=== PATIENT | male | born 1965 | race Caucasian/White ===

== ENCOUNTER 2017-07-21 13:10 | Observation (INO) | payer BC, OTHER ==
--- NOTE | 2017-07-21 13:49 | EDPHY ---
H & P Time Seen by Provider: 07/21/17 13:29 HPI/ROS: Chief complaint. Abdominal pain HPI. 52-year-old male with abdominal pain for 2 days. Apparently 2 nights ago he had fever and chills and symptoms were quite severe. He took some ibuprofen some gas medication and felt much better. His discomfort is in the lower right abdomen. Yesterday he had minimal symptoms though some discomfort if he pushed on it. No nausea vomiting or diarrhea. He has been slightly constipated. Took a laxative and did have kind of a loose stool this morning. No urinary symptoms. He went for a bike ride this morning. He went to [facility] who did a CT of his abdomen and diagnosed appendicitis. No blood work is done. No previous abdominal surgery. Last meal was 7:00 a.m.. ROS Constitutional. Fever and chills 2 nights ago Eyes. no problems with vision ENT. no sore throat, no nasal drainage Cardiovascular. no chest pain Respiratory. no shortness of breath, no cough Abdominal. Right lower quadrant abdominal pain . no problems urinating MS. no calf pain/swelling, no neck/back pain, no joint pain Skin. no rash Lymph. no swollen glands Neuro. no headache, no dizziness, no difficulty walking or with speech Past Medical/Surgical History: Healthy Social History: , nonsmoker, no alcohol Smoking Status: Never smoked Physical Exam: General Appearance: Alert well-developed male no distress vital signs are stable Eyes: Pupils equal and round no pallor or injection. ENT, Mouth: Mucous membranes are moist. Respiratory: There are no retractions, lungs are clear to auscultation. Cardiovascular: Regular rate and rhythm. Gastrointestinal: Abdomen is soft with tenderness in the right lower quadrant. No masses. Normal bowel sounds. No flank tenderness. Neurological: Awake and alert, sensory and motor exams grossly normal. Skin: Warm and dry, no rashes. Musculoskeletal: Neck is supple nontender. Extremities symmetrical, full range of motion. Psychiatric: Patient is oriented X 3, there is no agitation. Constitutional: Initial Vital Signs Temperature (C) 36.3 C 07/21/17 13:14 Heart Rate 92 07/21/17 13:14 Respiratory Rate 16 07/21/17 13:14 Blood Pressure 125/84 H 07/21/17 13:14 O2 Sat (%) 98 07/21/17 13:14 O2 Delivery Mode Room Air Allergies/Adverse Reactions: No Known Allergies Allergy (Unverified 07/21/17 13:13) Home Medications: Medication Instructions Recorded NK [No Known Home Meds] 07/21/17 Medical Decision Making - Diagnostics Imaging Results: Images from health images are taken over to Radiology Department CT reviewed by me and discussed with Dr. Reese shows apparent appendicitis. Procedures: IV normal saline ED Course/Re-evaluation: Re-evaluation 3:00 p.m.. Patient is stable. The patient, his , and I discussed laboratory evaluation and imaging study. We discussed treatment plan including recommendation for surgery. They expressed understanding and agreement IV Invanz, 2 L of saline. I consulted and discussed case Dr. Knight who will see the patient in the emergency department Re-evaluation 3:40 p.m. Patient is stable Differential Diagnosis: I considered appendicitis, diverticulitis, bowel obstruction. The patient has an abnormal appendix on CT however has normal workup and labs. - Data Points Laboratory Results: Laboratory Results 07/21/17 13:10 07/21/17 13:10 07/21/17 07/21/17 07/21/17 13:10 13:10 13:10 WBC 7.43 10^3/uL 10^3/uL (3.80-9.50) RBC 4.93 10^6/uL 10^6/uL (4.40-6.38) Hgb 15.4 g/dL g/dL (13.7-17.5) Hct 44.0 % % (40.0-51.0) MCV 89.2 fL fL (81.5-99.8) MCH 31.2 pg pg (27.9-34.1) MCHC 35.0 g/dL g/dL (32.4-36.7) RDW 13.2 % % (11.5-15.2) Plt Count 233 10^3/uL 10^3/uL (150-400) MPV 10.1 fL fL (8.7-11.7) Neut % (Auto) 60.2 % % (39.3-74.2) Lymph % (Auto) 27.6 % % (15.0-45.0) [place] % (Auto) 8.3 % % (4.5-13.0) Eos % (Auto) 2.8 % % (0.6-7.6) Baso % (Auto) 0.7 % % (0.3-1.7) Nucleat RBC Rel Count 0.0 % % (0.0-0.2) Absolute Neuts (auto) 4.47 10^3/uL 10^3/uL (1.70-6.50) Absolute Lymphs (auto) 2.05 10^3/uL 10^3/uL (1.00-3.00) Absolute Monos (auto) 0.62 10^3/uL 10^3/uL (0.30-0.80) Absolute Eos (auto) 0.21 10^3/uL 10^3/uL (0.03-0.40) Absolute Basos (auto) 0.05 10^3/uL 10^3/uL (0.02-0.10) Absolute Nucleated RBC 0.00 10^3/uL 10^3/uL (0-0.01) Immature Gran % 0.4 % % (0.0-1.1) Immature Gran # 0.03 10^3/uL 10^3/uL (0.00-0.10) Sodium 140 mEq/L mEq/L (135-145) Potassium 3.7 mEq/L mEq/L (3.3-5.0) Chloride 102 mEq/L mEq/L (97-110) Carbon Dioxide 24 mEq/l mEq/l (22-31) Anion Gap 14 mEq/L mEq/L (8-16) BUN 14 mg/dL mg/dL (7-23) Creatinine 0.8 mg/dL mg/dL (0.7-1.3) Estimated GFR > 60 Glucose 99 mg/dL mg/dL (70-100) Calcium 9.1 mg/dL mg/dL (8.5-10.4) Urine Color PALE YELLOW Urine Appearance CLEAR Urine pH 6.0 (5.0-7.5) Ur Specific [place] 1.034 H (1.002-1.030) Urine Protein NEGATIVE (NEGATIVE) Urine Ketones NEGATIVE (NEGATIVE) Urine Blood NEGATIVE (NEGATIVE) Urine Nitrate NEGATIVE (NEGATIVE) Urine Bilirubin NEGATIVE (NEGATIVE) Urine Urobilinogen NEGATIVE EU EU (0.2-1.0) Ur Leukocyte Esterase NEGATIVE (NEGATIVE) Urine RBC 1-3 /hpf /hpf (0-3) Urine WBC 0-1 /hpf /hpf (0-3) Ur Epithelial Cells NONE SEEN /lpf /lpf (NONE-1+) Urine Glucose NEGATIVE (NEGATIVE) Medications Given: Discontinued Medications Sodium Chloride (Ns) 1,000 mls @ 0 mls/hr IV EDNOW ONE; Wide Open PRN Reason: Protocol Stop: 07/21/17 14:01 Last Admin: 07/21/17 14:13 Dose: 1,000 mls Departure - Departure Disposition: [facility] Inpatient Acute Clinical Impression: Acute appendicitis Qualifiers: Acute appendicitis type: with localized peritonitis Qualified Code(s): K35.3 - Acute appendicitis with localized peritonitis Condition: Good Referrals: NONE *PRIMARY CARE P,. [Primary Care Provider] - As per Instructions
[2017-07-21] MEDS ORDERED: NS 1,000 ML IV ONE ×2 (14:00→15:01)
[2017-07-21 14:33] LABS: PLATELET COUNT 233 10^3/uL (150-400)
[2017-07-21] MEDS ORDERED: ERTAPENEM 1 GM in NS 100 ML IV ONE (15:01)
[2017-07-21] MEDS ORDERED: HEPARIN 5,000 UNIT/0.5 ML INJ ONE (16:02)
[2017-07-21] MEDS ORDERED: ceFAZolin 1 GM/5 ML SYR ONE (16:03)
[2017-07-21] MEDS ORDERED: MIDAZOLAM 2 MG/2 ML VIAL IVP ONE (16:12)
--- NOTE | 2017-07-21 16:12 | PDANEPAE ---
ANE History of Present Illness here for lap henrry DESMOND Past Medical History - Cardiovascular History Hx Hypertension: No Hx Arrhythmias: No Hx Chest Pain: No Hx Coronary Artery / Peripheral Vascular Disease: No Hx CHF / Valvular Disease: No Hx Palpitations: No - Pulmonary History Hx COPD: No Hx Asthma/Reactive Airway Disease: No Hx Recent Upper Respiratory Infection: No Hx Oxygen in Use at Home: No Hx Sleep Apnea: No - Endocrine History Hx Diabetes: No Hypothyroid: No Hyperthyroid: No Obesity: no - Renal History Hx Renal Disorders: No - Liver History Hx Hepatic Disorders: No - Neurological & Psychiatric Hx Hx Neurological and Psychiatric Disorders: No - Cancer History Hx Cancer: No - Congenital Disorder History Hx Congenital Disorders: No ANE Review of Systems Review of systems is: negative Review of Systems: - Exercise capacity Exercise capacity: >=4 METS ANE Patient History - Allergies Allergies/Adverse Reactions: Penicillins Allergy (Verified 07/21/17 16:05) Rash - Home Medications Home medications: home medication list seen and reviewed Home Medications: Doxylamine Succinate [Unisom] 25 mg PO HS PRN 07/21/17 [Last Taken 07/20/17] Ibuprofen [Motrin (*)] 600 mg PO DAILY PRN 07/21/17 [Last Taken 07/20/17] - NPO status NPO Status: no food or drink >8 hours NPO Since - Liquids (Date): 07/21/17 NPO Since - Liquids (Time): 12:15 NPO Since - Solids (Date): 07/21/17 NPO Since - Solids (Time): 07:00 - Anes Hx Anes Hx: no prior problems - Smoking Hx Smoking Status: Never smoked ANE Labs/Vital Signs - Labs Result Diagrams: 07/21/17 13:10 07/21/17 13:10 - Vital Signs Vital Signs: reviewed preoperatively; see RN documention for details Blood Pressure: 133/90 Heart Rate: 78 Respiratory Rate: 16 O2 Sat (%): 95 Height: 187.96 cm Weight: 81.647 kg ANE Physical Exam - Airway Neck exam: FROM Mallampati Score: Class 1 Mouth exam: normal dental/mouth exam - Pulmonary Pulmonary: no respiratory distress - Cardiovascular Cardiovascular: regular rate and rhythym - ASA Status ASA Status: I, E ANE Anesthesia Plan Anesthesia Plan: general endotracheal anesthesia
[2017-07-21] MEDS ORDERED: MIDAZOLAM 2 MG/2 ML VIAL ONE (16:16)
[2017-07-21] MEDS ORDERED: PROPOFOL/EMULSION 500 MG/50 ML BOTTLE IV ONE (16:20)
[2017-07-21] MEDS ORDERED: fentaNYL 100 MCG/2 ML INJ ONE ×3 (16:23→18:40)
[2017-07-21] MEDS ORDERED: HYDROmorphONE/DILAUDID 1 MG/ML INJ IVP PRN ×2 (16:23→16:47)
[2017-07-21] MEDS ORDERED: ONDANSETRON 4 MG/2 ML VIAL IVP PRN ×2 (16:23→16:47)
[2017-07-21] MEDS ORDERED: LR 1,000 ML IV SCH (16:30)
--- NOTE | 2017-07-21 16:38 | GHP ---
[f rep st] PREOP HISTORY AND PHYSICAL DATE OF ADMISSION: 07/21/2017 ADMITTING DIAGNOSES: 1. Acute appendicitis. 2. Mesenteric adenitis. HISTORY: The patient is a 52-year-old white male who was in his usual state of good health until evening. He felt he had a stomach ache at about dinnertime. The pain was located in the right lower quadrant. He did not eat dinner. He did have chills. He took Advil and Gas-X. He slept well that night. Yesterday, he was tender in the right lower quadrant and his pain became worse last night, but in both cases the pain was less than it had been on . He took senna last evening and had diarrhea this morning. This morning he was going to take a bicycle ride, but decided against it. At his 's suggestion, they went to a outpatient scanning facility and had a CAT scan. The CT scan is consistent with appendicitis and also demonstrates mesenteric adenitis. He does not have a history of recent upper respiratory tract infection. He had diarrhea only today. He has not had travel outside the [place] or antibiotic use in the last 6 months. There is no history of inflammatory bowel disease or prior abdominal surgery. SOCIAL HISTORY: He is a nonsmoker. He has approximately a glass of wine per day. ALLERGIES: There is a question of a penicillin allergy with a rash as a very young man. He has not had any issues since that time, but he could not definitively state that he has had penicillin or its analogues since that time.. MEDICATIONS: He is not taking medications. PAST SURGICAL HISTORY: He has had no prior surgery. PAST MEDICAL HISTORY: There is no history of rheumatic fever, tuberculosis, hepatitis, or transfusions. 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 He wears lenses for visual correction for nearsightedness. He has 1 dental crown, he has veneers. REVIEW OF SYSTEMS: Otherwise quite negative. There are no limits on his activities. No history of steroid use. PHYSICAL EXAMINATION: GENERAL: He is awake and alert. He is oriented to person, place, and time. HEENT: His skull is normocephalic and atraumatic. NEUROLOGIC: Cranial nerves are intact. There are no focal lateralizing neurologic findings. LYMPH NODES: There is no cervical, supraclavicular, axillary or inguinal lymphadenopathy. LUNGS: Clear to auscultation. CARDIAC: Shows S1 and S2 to be normal with split of S2, without murmurs, rubs, or gallops. BACK: Unremarkable. Spine is palpably normal. ABDOMEN: He is tender with cough in the right lower quadrant. Psoas and obturator signs are negative. He has hypoactive bowel sounds. To palpation, his abdomen is tender as follows, on a scale of 1-10, where 1 is no pain and 10 is severe pain: Left upper quadrant 1, left mid abdomen 1, left lower quadrant 1, epigastrium 1, periumbilical area 1, suprapubic area 1, right upper quadrant 1, right mid abdomen 1, right lower quadrant 5. LOWER EXTREMITIES: Unremarkable. VITAL SIGNS: Show a temperature of 36.5, his blood pressure is 133/90, with a heart rate of 78, respirations are 16. LABORATORY: His white blood cell count is 7.4 with 62% neutrophils. Hematocrit is 44, platelet count is 233. His creatinine is 0.8, his BUN is 14. His urine is specific gravity of 1.034. His CAT scan certainly shows an appendix with a hyperemic wall, which slightly dilated. There is some periappendiceal stranding. There certainly is lymphadenopathy in the ileocolic distribution. IMPRESSION: Acute appendicitis with probable viral etiology and mesenteric adenitis. We have discussed nonoperative approaches with antibiotics versus operative approaches. I expressed my concerns with the antibiotics, if they work well, work very nicely, but if they fail it is much more problematic and the definitive pathology can not be obtained They agreed to proceed with surgical approach at this time. /[id number]/MODL MTDD
[2017-07-21] MEDS ORDERED: NALOXONE HCL 0.4 MG/ML INJ IVP PRN (16:47)
[2017-07-21] MEDS ORDERED: ALBUTEROL 3 ML DEYVIAL IH PRN (16:47)
[2017-07-21] MEDS ORDERED: PROMETHAZINE HCL 25 MG/ML INJ IVP PRN (16:47)
[2017-07-21] MEDS ORDERED: DEXAMETHASONE 4 MG/ML VIAL IVP PRN (16:47)
[2017-07-21] MEDS ORDERED: fentaNYL 100 MCG/2 ML INJ IVP PRN (16:47)
[2017-07-21] MEDS ORDERED: PROPOFOL 200 MG/20 ML VIAL ONE (17:59)
[2017-07-21] MEDS ORDERED: SUGAMMADEX SODIUM 200 MG/2 ML VIAL IVP ONE (18:03)
[2017-07-21] MEDS ORDERED: KETOROLAC 30 MG/1 ML SDV ONE (18:11)
--- NOTE | 2017-07-21 18:26 | POSTANESTH ---
Post Anesthetic Evaluation Cardiovascular Status: Normal, Stable Respiratory Status: Normal, Stable Level of Consciousness/Mental Status: Can Participate in Eval Pain Control: Adequate, Prn Tx Ordered Nausea/Vomiting Control: Adequate, Prn Tx Ordered Complications Possibly Related to Anesthesia: None Noted
--- NOTE | 2017-07-21 19:32 | POSTOPPROG ---
Post Op Note Date of Operation: 07/21/17 Surgeon: Nic Knight Anesthesia: GET(General Endotracheal) Pre-op Diagnosis: acute appendicitis with mesenteric adenitis by CT Post-op Diagnosis: acute appendicitis without mesenteric adenitis, frim appendiceal base Indication: acute appendicitis with mesenteric adenitis by CT Procedure: lap appendectomy with partial cecal resection(minimal) Findings: acute appendicitis without mesenteric adenitis, frim appendiceal base Inf/Abcess present in the surg proc area at time of surgery?: No EBL: 50-100 Total fluids administered: 1000 Complications: none Specimen(s): appendix appendiceal base with cuff of cecum
[2017-07-21] MEDS: ACETAMINOPHEN 500 MG TAB PO SCH (20:17)
--- NOTE | 2017-07-21 20:19 | GOP ---
[f rep st] OPERATIVE REPORT DATE OF OPERATION: 07/21/2017 SURGEON: Nic Knight MD ANESTHESIA: General endotracheal. PREOPERATIVE DIAGNOSIS: Acute appendicitis and mesenteric adenitis by CT. POSTOPERATIVE DIAGNOSIS: Acute appendicitis without mesenteric adenitis but firm appendiceal base. PROCEDURE PERFORMED: Laparoscopic appendectomy with partial cecal resection ( minimal). FINDINGS: Acute appendicitis without mesenteric adenitis but firm appendiceal base. SPECIMENS: 1. Appendix. 1. Appendiceal base with a cuff of cecum. 2. ESTIMATED BLOOD LOSS: 50 to 100 cc. INDICATIONS: Acute appendicitis and mesenteric adenitis by CT. DESCRIPTION OF PROCEDURE: The patient is placed on the operating table in supine position. After induction of adequate general endotracheal anesthesia, the abdomen was carefully clipped, prepped, and draped. Note is made he emptied his bladder before coming to the operating room, so a Lewis catheter was not used. A surgical time-out was carried out and agreed to by all members of the operative team. A curvilinear incision was planned at the umbilicus. A transverse suprapubic incision was planned as well as a left lower quadrant oblique incision. The skin was incised at all 3 sites. He had some oozing issues, but this controlled with Bovie electrocautery. A curvilinear incision was made at the umbilicus. Dissection was continued down to the anterior rectus sheath, which was elevated between 2 Allis clamps. The sheath was divided in the midline. A pursestring #0 PDS was placed. The peritoneum was entered. An 11-12 mm disposable Elma trocar was positioned and insufflation was carried out to 15 mmHg. This was done using a high-flow technique. A 5 mm port was placed in the left lower quadrant through the oblique incision. A 5 mm port was placed through the transverse suprapubic incision. On examining the abdomen, there was no evidence of hernias. There were a lot of adhesions between the ascending colon and the anterior abdominal wall. It was necessary to lyse these adhesions to expose the appendix. Once this was done, the appendix was carefully exposed on the anterior, superior, and inferior aspects using Harmonic scalpel. The tip was not distended, and it was located superiorly and laterally. Once this was done, the appendix was carefully elevated and a long tedious dissection was carried out to divide the mesoappendix. There was intense inflammatory response to the cecum at its base. It was difficult to visualize this, so an Endo-TC stapler was placed across the appendix, which was removed in an EndoCatch bag. This allowed an easier visualization of the base of the appendix and the cecal wall. Further dissection was carried out with the Harmonic scalpel. This was done to expose a soft pliable cecum. The appendiceal stump was elevated and 2 applications of an Endo-TC stapler were used to transect the appendiceal base with a cuff of cecum. Note was made that on exploring the patient there was no fluid found in the pelvis. Copious irrigation was now carried out. The appendiceal base has been removed using EndoCatch bag again. The small bowel was run for a distance of approximately 3 feet. Extensive mesenteric adenitis was not identified. There was no evidence of Meckel diverticulum. Pneumoperitoneum was released. Ports removed under direct vision , and inverted simple sutures placed in the infraumbilical fascia at its midpoint and tied. The pursestring was now tied. The subcutaneous tissue was well irrigated with heparin and Ancef-containing irrigant. Approximately 1.5 L was used during the course of the procedure. The skin incisions were closed with inverted simple sutures of #4-0 Vicryl. Mastisol and Steri-Strips were positioned. Band-Aids were positioned. The patient was transferred to Recovery in stable and satisfactory condition. FLUIDS ADMINISTERED: 1000 cc. COMPLICATIONS: None. DRAINS: None. /[id number]/MODL MTDD
[2017-07-22] MEDS: KETOROLAC 15 MG/1 ML SDV IVP SCH ×3 (00:01→06:17)
[2017-07-22] MEDS: ACETAMINOPHEN 500 MG TAB PO SCH ×2 (03:20→06:17)
[2017-07-22 06:20] VITALS: BP 116/73
--- NOTE | 2017-07-22 07:30 | SOAPPROG ---
SOAP Progress Note Assessment/Plan: 07/22/17 07:27 POD#1 Assessment: Feels well. Has tolerated clear liquids. No flatus or stool yet Incisions look good Path pending Plan: Discharge today Subjective: I feel better. No gas or stool Objective: Vital Signs Temp Pulse Resp BP Pulse Ox 36.4 C 68 17 116/73 95 07/22/17 06:19 07/22/17 06:19 07/22/17 06:19 07/22/17 06:19 07/22/17 06:19 07/21/17 07/22/17 07/23/17 05:59 05:59 05:59 Intake Total 3350 Output Total 780 600 Balance 2570 -600 - Time Spent With Patient Time Spent With Patient: 15 - Pending Discharge Pending Discharge Within 24 Hours: Yes Pending Discharge Date: 07/22/17 Pending Discharge Time: 11:00 ICD10 Worksheet Patient Problems: Problems Problem Status Onset Acute appendicitis Acute
--- NOTE | 2017-07-22 09:10 | GDS ---
[f rep st] DISCHARGE SUMMARY DISPOSITION: Home. CONDITION: Good. DISCHARGE DIAGNOSIS: Acute appendicitis. DIET RECOMMENDATIONS: There is no restriction on his diet, but I suggest he avoid constipating foods, such as bananas, rice, applesauce, and cheese. Diet texture is unlimited. DISCHARGE MEDICATIONS: He will take Tylenol 1000 mg every 8 hour hours. He will take Motrin 200mg every 6 hours as needed. He will use Dilaudid 2 mg to 4 mg every 4 hours for severe pain. DISCHARGE INSTRUCTIONS/FOLLOWUP: For the next 3 weeks, he is to lift less than 10 pound. Shower only. Keep the Steri-Strips in place. He is also to take a multivitamin with zinc, copper, and C daily. He is to follow up with Dr. Isidro Yusuf' office where he can see Dr. Yusuf, Dr. Moore, or Dr. Escobar in 10 days to 2 weeks. His appendix was quite swollen at its base and quite firm. The appendix was resected with a cuff of cecum. The pathology will be reviewed as soon as it is available and the results communicated to the patient. HOSPITAL COURSE: Has been unremarkable. /[id number]/MODL MTDD
== END 2017-07-22 10:04 | disposition home or self-care (01) ==
LOC: INTOOBSV 15:52 → FOB 19:57
PROVIDERS: ADMIT Surgery; ATTEND Surgery
PROC: 0DTH4ZZ Resection of Cecum, Percutaneous Endoscopic Approach (ICD-10-PCS; principal; 2017-07-21 16:30)
PROC: 0DTJ4ZZ Resection of Appendix, Percutaneous Endoscopic Approach (ICD-10-PCS; principal; 2017-07-21 16:30)
DX: K35.80 Unspecified acute appendicitis (principal); I88.0 Nonspecific mesenteric lymphadenitis
CPT/HCPCS: 44204; 44970; G0378; 96374; J1335; J1644; J1885; J2250; J2704; J3010